=== PATIENT | female | born 1965 | race Caucasian/White ===

== ENCOUNTER → 2017-08-12 | Outpatient (CLI) | payer OTHER ==
[~2017-08-12] MED LIST: KET10 PO; PER PO
--- NOTE | 2017-08-12 15:06 | RADIOLOGY IMAGING REPORT ---
FACILITY: [facility] PATIENT NAME: Mary Rader : 1965 MR: [id number] V: [id number] EXAM DATE: ORDERING PHYSICIAN: LEIA YOUNG TECHNOLOGIST: Location: [facility] Patient: Mary Rader : 1965 Visit/Account:[id number] Date of Sevice: 08/12/2017 PELVIC HISTORY: Right ovary enlargement on pelvic exam history of large follicles TECHNIQUE: Transabdominal and transvaginal ultrasound pelvis. COMPARISON: CT May 04, 2011 FINDINGS: The patient has undergone a partial hysterectomy. Multiple cysts are identified in what appears to be a cervical stump Ovaries: Right - not visualized due to bowel gas Left - not visualized due to bowel gas Adnexa: Grossly unremarkable. Free pelvic fluid: None. IMPRESSION: Post surgical changes from a partial hysterectomy and what appear to be cystic changes in the cervica l stump Neither ovary was visualized due to overlying bowel gas Report Dictated By: Nasima Monroe MD at 08/12/2017 2:59 PM Report E-Signed By: Nasima Monroe MD at 08/12/2017 3:02 PM WSN:[email or web address]
== END ==
LOC: US 07:11
PROVIDERS: ATTEND Family Medicine
DX: N88.8 Other specified noninflammatory disorders of cervix uteri (principal)
CPT/HCPCS: 76856

== ENCOUNTER → 2018-08-29 | Outpatient (CLI) | payer OTHER ==
--- NOTE | 2018-08-29 15:37 | RADIOLOGY IMAGING REPORT ---
FACILITY: [facility] PATIENT NAME: Mary Rader : 1965 MR: [id number] V: [id number] EXAM DATE: ORDERING PHYSICIAN: LEIA YOUNG TECHNOLOGIST: Location: [facility] Patient: Mary Radre : 1965 Visit/Account:[id number] Date of Sevice: 08/29/2018 DEXA Scan Clinical history: Osteopenia. Comparison: DEXA scan from 12/30/2016. LUMBAR SPINE: The bone mineral density (BMD) measured from L1-L4 correlates with a Z-score of -1 and a T-score of - 1.2 which is osteopenia as defined by the World Health Organization. The corresponding risk of fract ure in the lumbar spine is 2-3 times increased compared with a young adult reference population. Thi s value has increase by 8.6 % since the prior study. More than 5% change is considered significant. HIP: Bone mineral density (BMD) measured in the LEFT total hip region correlates with a Z-score -0.4 and a T-score of -0.6 which is normal as defined by the World Health Organization. The corresponding risk of fracture in the hip is 1-2 t imes increased compared to a young adult reference population. This value has increase by two % since the prior study. More than 5% change is considered significant. T score left femoral neck -1.4 Bone mineral density (BMD) measured in the Femoral Neck region measures 0.842 g/cm?. IMPRESSION: 1. Lumbar spine: Osteopenia. There has been 8.6% increase in the bone mineral density since the pre vious exam. 2. Left Total Hip: Normal. There has been 5.2% increase in the bone mineral density since the previ ous exam. 3. Femoral Neck: Bone Mineral Density is 0.842 g/cm? The next DEXA scan of this patient should include the following sites: L1-L4 and the left hip. FRAX? WHO Fracture Risk Assessment Tool link: <http://www.shef.ac.uk/FRAX/tool.jsp?locationValue=9> PLEASE NOTE: 1) The World Health Organization defines low BMD as follows: T-score Normal > -1 Osteopenia < -1 and > -2.5 Osteoporosis < -2.5 without fractures Established osteoporosis < -2.5 with fractures 2) In general, you may wish to consider: Diagnosis Treatment Follow-up DEXA Normal BMD Prevention 2-3 years Osteopenia Prevention/therapy 1-2 years Osteoporosis Therapy Yearly 3) Fracture risk estimated from the T-score is more accurate for vertebral fractures (often spontane ous) than for hip fractures. Report Dictated By: Nasima Monroe MD at 08/29/2018 3:30 PM Report E-Signed By: Nasima Monroe MD at 08/29/2018 3:32 PM WSN:[email or web address]
--- NOTE | 2018-08-30 09:02 | RADIOLOGY IMAGING REPORT ---
[place] [facility] [place]IENT NAME: AJAY MAJOR : [id number] MR: [id number] V: [id number] EXAM DATE: ORDERING PHYSICIAN: LEIA YOUNG TECHNOLOGIST: Marilyn Godwin PROCEDURE:BILATERAL DIGITAL SCREENING MAMMOGRAM WITH CAD ASSISTED INTERPRETATION & 3D TOMOSYNTHESIS COMPARISON:Prior mammograms 12/30/16, 11/11/15, 04/13/13. INDICATIONS:SCREENING FINDINGS: Scattered fibroglandular densities are seen throughout the breasts. The parenchymal pattern has remained stable allowing for difference in mammographic technique & patient positioning. DIAGNOSTIC CATEGORY 1--NEGATIVE. RECOMMENDATIONS: ROUTINE MAMMOGRAM AND CLINICAL EVALUATION. IMPRESSION: BIRADS 1: Negative. No significant abnormality is seen. Dictated by: Nasima Monroe M.D. on 08/29/2018 at 18:16 Transcribed by: LUMA on 08/30/2018 at 8:00 Approved by: Nasima Monroe M.D. on 08/30/2018 at 9:00 [facility]
== END ==
LOC: MAMO 03:22
PROVIDERS: ATTEND Family Medicine
DX: Z12.31 Encounter for screening mammogram for malignant neoplasm of breast (principal); M85.88 Other specified disorders of bone density and structure, other site
CPT/HCPCS: 77063; 77067; 77080